=== PATIENT | male | born 1965 | race Caucasian/White ===

== ENCOUNTER 2021-05-11 13:03 | Emergency (ER) | payer MEDICAID ==
[~2021-05-11] VITALS: Ht 177.8 cm; Wt 113.0 kg
[2021-05-11] MEDS ORDERED: CASIRIVIMAB/IMDEVIMAB inject. 10 ML in normal saline 100ml IV soln 100 ML IV ONE (15:00)
[2021-05-11 17:40] VITALS: BP 158/101
== END 2021-05-11 16:40 | disposition home or self-care (01) ==
LOC: ER 13:04
DX: U07.1 COVID-19 (principal); R05 Cough; R06.02 Shortness of breath; R50.9 Fever, unspecified; I10 Essential (primary) hypertension; Z88.5 Allergy status to narcotic agent
CPT/HCPCS: 36415; 71045; 99284; M0243; Q0244; U0003; U0005

== ENCOUNTER 2021-10-01 13:03 | Emergency (ER) | payer MEDICAID ==
[~2021-10-01] VITALS: Ht 177.8 cm; Wt 109.1 kg
[2021-10-01] MEDS ORDERED: SOTROVIMAB 500mg injection 500 MG in normal saline 100ml IV soln 100 ML IV ONE (14:10)
[2021-10-01] MEDS ORDERED: normal saline 1000ml 1,000 ML IV ONE (15:20)
[2021-10-01 16:19] VITALS: BP 146/93
== END 2021-10-01 16:25 | disposition home or self-care (01) ==
LOC: ER 13:04
DX: U07.1 COVID-19 (principal); Z88.5 Allergy status to narcotic agent; I10 Essential (primary) hypertension
CPT/HCPCS: 71045; 99284; J3490; J7030; M0247; Q0247; 96360

== ENCOUNTER → 2024-01-31 | Outpatient (CLI) | payer MEDICAID | END | disposition home or self-care (01) | LOC: MRI 14:45 | PROVIDERS: ATTEND Physical Medicine & Rehabilitation | DX: M54.6 Pain in thoracic spine (principal); M79.10 Myalgia, unspecified site; M47.812 Spondylosis without myelopathy or radiculopathy, cervical region; M54.2 Cervicalgia | CPT/HCPCS: 72146 ==